=== PATIENT | male | born 1975 | race Caucasian/White ===

== ENCOUNTER 2016-10-22 12:18 | Emergency (ER) ==
[2016-10-22] MEDS ORDERED: DECADRON IM ONE (15:35)
--- NOTE | 2016-10-22 15:36 | PROVIDER DOCUMENTATION ---
HPI-Respiratory General <Pito Thayer - Last Filed: 10/22/16 15:35> - General Source: patient - History of Present Illness-Resp Quality of Pain: reports: aching Severity in ED: reports: mild Onset/Duration: reports: 4 days ago Timing: reports: still present, intermittent Exposure: reports: unknown cause Cough Quality/Degree: reports: dry cough Episode Frequency: occasional episodes Current Respiratory Medication Therapy: Initiated see nurses note Modifying Factors: improves with: nothing Associated Symptoms: reports: cough, fever/chills, nasal congestion. denies: chest pain/soreness, dizziness, earache, facial pain, flu-like symptoms, headache, heart racing, hurts to breathe, hyperventilating, lightheadedness, muscle/bodyaches, nasal drainage, shortness of breath, sinus pain, short of breath, sore throat, sweaty, wheezing Similar Symptoms Previously?: Yes Recently seen or treated by another doctor?: No <Jayshree Martinez - Last Filed: 10/22/16 15:40> - General Chief Complaint: Cold Symptoms Stated Complaint: COLD SX Time Seen by Provider: 10/22/16 14:56 Allergies/Adverse Reactions: Patient Allergies Allergy/AdvReac Type Severity Reaction Status Date / Time No Known Allergies Allergy Verified 03/19/16 06:53 Home Medications: Home Medication List Medication Instructions Recorded Confirmed Last Taken Type Praziquantel 5 gm MC ONCE #1 powder 03/19/16 Unknown Rx Azithromycin [Zithromax Z-Sanford] 250 mg PO DIRECTED #1 pkg 10/22/16 Unknown Rx Guaifenesin/D-Methorphan Hb/PE 1 each PO Q6-8H PRN PRN #14 tablet 10/22/16 Unknown Rx [Deconex Dmx Tablet] Prednisone 20 mg PO DAILY #6 tablet 10/22/16 Unknown Rx Review of Systems - Adult - REVIEW OF SYSTEMS - ADULT Constitutional: reports: chills, fever Eyes: denies: blurred vision, double vision Ears, Nose, Mouth & Throat: reports: sinus problem (congestion). denies: ear pain, nose pain, throat pain Cardiovascular: denies: chest pain, heart murmur, irregular heart rate Respiratory: reports: cough. denies: shortness of breath, wheezing Gastrointestinal: denies: abdominal pain, diarrhea, frequent heartburn, nausea, vomiting Genitourinary: denies: dysuria, hematuria Musculoskeletal: denies: bone pain, joint pain, neck pain Integumentary: denies: hives, itching Neurological: denies: dizziness/vertigo, headache/migraines Psychiatric: reports: no symptoms reported Endocrine: reports: no symptoms reported Hematologic/Lymphatic: reports: no symptoms reported Allergic/Immunologic: reports: no symptoms reported All Other Systems: Reviewed and Negative <Jayhsree Martinez - Last Filed: 10/22/16 15:40> Past History - Adult - PAST MEDICAL HISTORY-ADULT Major Childhood Illnesses: reports: denies history Cardiovascular: reports: denies history Respiratory: reports: denies history Gastrointestinal: reports: denies history Genitourinary: reports: denies history Musculoskeletal: reports: denies history Neurological: reports: denies history Psychiatric: reports: denies history Endocrine/Immune: reports: denies history Other Conditions: reports: denies history - PRIOR SURGERIES/PROCEDURES Surgical/Procedure History: reports: appendectomy - PRIOR HOSPITALIZATIONS Prior Hospitalizations: reports: none - IMMUNIZATION STATUS Childhood Immunizations: See Nurse Assessment Flu Vaccine: See Nurse Assessment - FAMILY HISTORY Family History: reviewed, not pertinent <Pito Thayer - Last Filed: 10/22/16 15:35> - PAST MEDICAL HISTORY-ADULT Review of Records: reports: Nursing Assessment Review, Medications Reviewed, Social history reviewed & non-contributory. Major Childhood Illnesses: reports: denies history Cardiovascular: reports: denies history Respiratory: reports: denies history Gastrointestinal: reports: denies history Obstetrical/Gynecological: reports: denies history Genitourinary: reports: denies history Musculoskeletal: reports: denies history Neurological: reports: denies history Endocrine/Immune: reports: denies history Other Conditions: reports: denies history - PRIOR SURGERIES/PROCEDURES Surgical/Procedure History: reports: appendectomy - IMMUNIZATION STATUS Childhood Immunizations: See Nurse Assessment Flu Vaccine: See Nurse Assessment - FAMILY HISTORY Family History: reviewed, not pertinent - SOCIAL HISTORY Smoking: denies Substance Use: denies Living Situation: family <Jayshree Martinez - Last Filed: 10/22/16 15:40> Physical Exam-General - PHYSICAL EXAM-ADULT Initial Vital Signs Reviewed: Yes - CONSTITUTIONAL General Appearance: appears well, alert, no apparent distress - EYES Eyes: PERRL/EOMI, pink conjunctivae, fundi clear, no AV nicking - HEAD, EARS, NOSE, MOUTH & THROAT HENMT: normocephalic/atraumatic, moist mucous membranes, TMs normal, pharyngeal erythema - NECK Neck: non-tender, full range of motion, supple, normal inspection - RESPIRATORY Respiratory: chest non-tender, no pleuratic chest pain, no respiratory distress , no accessory muscle use, rhonchi (bilateral) - CARDIOVASCULAR Cardiovascular: normal peripheral pulses, regular rate, rhythm, no edema, no gallop, no JVD, no murmur - GASTROINTESTINAL (ABDOMEN) Abdominal Exam: normal bowel sounds, non tender, soft, no organomegaly, no pulsatile mass - LYMPHATIC Lymphatic: no adenopathy - MUSCULOSKELETAL Back Exam: normal inspection, no CVA tenderness, no vertebral tenderness Extremity: normal range of motion, non-tender, normal gait, normal inspection, no pedal edema, no calf tenderness, normal capillary refill, pelvis stable - SKIN Integumentary: normal color, normal turgor, warm/dry - NEUROLOGIC Neurologic: grossly normal - PSYCHIATRIC Psych/Mental Status: normal mood/affect, oriented x 3 <Jayshree Martinez - Last Filed: 10/22/16 15:40> Progress <Pito Thayer - Last Filed: 10/22/16 15:35> <Jayshree Martinez - Last Filed: 10/22/16 15:40> - PLAN OF CARE/RESULTS Progress/Plan/Lab Results: Orders Category Date Time Status Dexamethasone [Decadron] Med 10/22/16 15:35 Discontinued 10 mg IM NOW ONE Vital Signs - 24 hr 10/22/16 12:22 Temperature 97.9 F Pulse Rate 83 Respiratory 20 Rate Blood Pressure 128/70 O2 Sat by Pulse 98 Oximetry (Jayshree Martinez) Departure - Departure Time of Disposition Order: 15:35 Certified Medical Emergency: Urgent <Pito Thayer - Last Filed: 10/22/16 15:35> - Departure Time of Disposition Order: 15:40 Certified Medical Emergency: Emergent <Jayshree Martinez - Last Filed: 10/22/16 15:40> - Departure DIAGNOSIS: Bronchitis Disposition: HOME 01 Condition: Good Additional Instructions: Take medication as prescribed. Rest and stay well hydrated. ED Follow Up Instructions: You have been treated by a care provider in the Emergency Department. These instructions are being provided to you so you can have an understanding of how to care for yourself upon discharge. Upon discharge from the Emergency Department, you are responsible for making arrangements for follow-up care by a physician of your choice. Take all prescribed medications as directed. Return to the Emergency Department immediately for any new or worsening symptoms. You may call the Physician Referral phone number at [phone] to obtain a list of Physicians who are taking new patients. Prescriptions: Guaifenesin/D-Methorphan Hb/PE [Deconex Dmx Tablet] 1 each PO Q6-8H PRN PRN #14 tablet PRN Reason: Cough and congestion Prednisone 20 mg PO DAILY #6 tablet Azithromycin [Zithromax Z-Sanford] 250 mg PO DIRECTED #1 pkg Referrals: None,PCP [Primary Care Provider] - Attestation - Physician/ ERIBERTO Attestation Patient care was provided by Advanced Practice Provider:: Yes Advanced Practice Provider:: Pito Thayer Advanced Practice Provider documentation review:: The Mid-level provider documentation, treatment plan and medical decision making was reviewed by the physician who agrees with all treatment and medical decision making by the MLP. <Pito Thayer - Last Filed: 10/22/16 15:35> - Scribe Verification/Attestation Scribe:: Jayshree Martinez Acting as Scribe for:: Pito Thayer Scribe documention review:: This chart was documented by a scribe and accurately reflects the service the provider performed and the decisions made by the provider. <Jayshree Martinez - Last Filed: 10/22/16 15:40> Physician Attestation
[2016-10-22 16:08] VITALS: BP 127/72
== END 2016-10-22 16:07 | disposition home or self-care (01) ==
LOC: P.ED 12:18
DX: J40 Bronchitis, not specified as acute or chronic (principal); R05 Cough; R50.9 Fever, unspecified; R09.81 Nasal congestion
CPT/HCPCS: 96372